=== PATIENT | male | born 1970 | race Hispanic/Latino ===

== ENCOUNTER → 2024-08-26 | Day surgery (SDC) | payer OTHER ==
[2024-08-23 10:53] LABS: BASOPHILS # (AUTO) 0.1 (0.0-0.1); EOSINOPHILS # (AUTO) 0.2 (0.0-0.4); EOSINOPHILS % 3.5 % (0.0-6.0); HEMATOCRIT 41.3 % (38.2-49.6); HEMOGLOBIN 14.6 g/dL (14.0-18.0); LYMPHOCYTES # (AUTO) 1.8 (1.0-3.2); LYMPHOCYTES % 29.3 % (18.0-39.1); MEAN CORPUSCULAR HEMOGLOBIN 30.3 pg (28-32); MEAN CORPUSCULAR HGB CONC 35.4 g/dL (31-35); MEAN CORPUSCULAR VOLUME 85.7 fL (81-99); MONOCYTES # (AUTO) 0.4 (0.2-0.8); MONOCYTES % 5.7 % (4.4-11.3); NEUTROPHILS # (AUTO) 3.8 (2.1-6.9); NEUTROPHILS % 60.3 % (38.7-80.0); PLATELET COUNT 294 x10e3/uL (140-360); RED BLOOD COUNT 4.82 x10e6/uL (4.3-5.7); RED CELL DISTRIBUTION WIDTH 11.5 % (11.7-14.4); WHITE BLOOD COUNT 6.29 x10e3/uL (4.8-10.8)
[2024-08-23 11:26] LABS: ALBUMIN 3.6 g/dL (3.5-5.0); ALBUMIN/GLOBULIN RATIO 0.9 (0.8-2.0); ANION GAP 15.2 mmol/L (8-16); BILIRUBIN,TOTAL 0.3 mg/dL (0.2-1.2); CALCIUM 9.2 mg/dL (8.4-10.2); CREATININE, SERUM 0.85 mg/dL (0.72-1.25); POTASSIUM 4.2 mmol/L (3.5-5.1); TOTAL PROTEIN 7.6 g/dL (6.5-8.1)
[~2024-08-26] MED LIST: ACETAMINOPHEN 1000 MG/100 ML 100 ML IV ONE; DEXAMETHASONE SOD PHOS INJ 4 MG/ML SDV ONE; FENTANYL CITRATE/PF 100MCG/2 ML INJ ONE; KETOROLAC TROMETHAMINE 30 MG/ML VIAL ONE; LIDOCAINE HCL 2% LOCAL INJ 5 ML SDV VIAL INJ ONE; METFORMIN HCL500 MG PO; MIDAZOLAM HCL 2 MG/2 ML VIAL ONE; NAPROXEN250 MG PO; ONDANSETRON HCL INJ 2MG/ML 2ML 2 MG/ML VIAL ONE; PROPOFOL IV EMULSION 10 MG/ML 20 ML VIAL ONE; ROCURONIUM BROMIDE 1 ML IV ONE; SEVOFLURANE INHAL SOLN 250 ML PEN BTL ONE; SIMVASTATIN20 MG PO; SUGAMMADEX SODIUM 200 MG/2 ML VIAL IV ONE; TRAMADOL HCL 50 MG TAB ONE; ULTRAM 50MG50 MG PO
[2024-08-26] MEDS: CEFAZOLIN SODIUM 2 GM ONE (11:51)
[2024-08-26] MEDS: LACTATED RINGER'S 1,000 ML ONE (11:52)
[2024-08-26 13:24] VITALS: TEMP 97.1
[2024-08-26] MEDS: TRAMADOL HCL 50 MG TAB PO ONE (14:16)
[2024-08-26 14:45] VITALS: BP 112/81; PULSE 70; RESP 18; O2SAT 95
== END | disposition home or self-care (01) ==
LOC: OR 11:30
PROVIDERS: ATTEND Surgery
DX: K80.12 Calculus of gallbladder with acute and chronic cholecystitis without obstruction (principal); K82.8 Other specified diseases of gallbladder; E11.9 Type 2 diabetes mellitus without complications; K21.9 Gastro-esophageal reflux disease without esophagitis; E66.3 Overweight; E78.5 Hyperlipidemia, unspecified; J45.909 Unspecified asthma, uncomplicated; M53.80 Other specified dorsopathies, site unspecified; Z01.810 Encounter for preprocedural cardiovascular examination; Z01.812 Encounter for preprocedural laboratory examination; Z79.84 Long term (current) use of oral hypoglycemic drugs; Z79.1 Long term (current) use of non-steroidal anti-inflammatories (NSAID); Z79.899 Other long term (current) drug therapy; Z68.30 Body mass index [BMI] 30.0-30.9, adult
CPT/HCPCS: 36415; 47562; 80053; 85025; 88304; 93005; J0131; J1100; J1885; J2003; J2250; J2405; J2704; J3010; J7121